=== PATIENT | female | born 1960 | race Caucasian/White ===

== ENCOUNTER 2016-10-08 21:02 | Emergency (ER) | payer OTHER ==
[~2016-10-08] VITALS: Ht 152.4 cm; Wt 66.0 kg
[~2016-10-08 21:02] MED LIST: INSULIN 70/30 SQ; MTF1000T PO
[2016-10-08 21:05] VITALS: Ht 152.4 cm; Wt 66.0 kg
[2016-10-08] MEDS ORDERED: FAMOTIDINE 20 MG TAB PO STA (21:20)
--- NOTE | 2016-10-08 21:23 | ERD ---
ER Documentation Chief Complaint Date/Time DATE: 10/08/16 TIME: 21:22 Chief Complaint Left AP with Right flank pain HPI Patient is a 56-year-old female who presents with gradual onset, intermittent, dull, moderate left upper and lower quadrant pain radiating to left flank since 3 PM. The patient states that the pain is coming gone on 3 occasions. She states that she had the same pain one year ago due to unknown cause. The patient states that she feels nauseous, but has not vomited. She has been constipated. She denies fever. Denies dysuria or hematuria. ROS All systems reviewed and are negative except as per history of present illness. Medications Home Meds Reported Medications Insulin Isophan/Regular (Humulin 70/30) 100 Units/Ml Susp, 42 UNIT SC AC BREAKFAST DINNER, EA 10/08/16 Metformin* (Glucophage*) 1,000 Mg Tablet, 1000 MG PO BID 01/30/12 Discontinued Reported Medications [Insulin 70/30] No Conflict Check, 42 UNITS SQ 01/30/12 Allergies Allergies: Coded Allergies: No Known Drug Allergy (Verified Allergy, Mild, 01/30/12) PMhx/Soc Past medical history: Diabetes, hypertension, hyperlipidemia, arthritis Past surgical history: Bladder surgery Social history: Denies tobacco, alcohol or illicit drugs per History of Surgery: Yes ( SURGERY, EYE SURGERY) Anesthesia Reaction: No Hx Neurological Disorder: No Hx Respiratory Disorders: No Hx Cardiac Disorders: No Hx Psychiatric Problems: No Hx Miscellaneous Medical Probl: Yes (DYSLIPIDEMIA, HTN) Hx Alcohol Use: No Hx Substance Use: No Hx Tobacco Use: No Smoking Status: Never smoker FmHx Family History: diabetes Physical Exam Vitals Vital Signs Date Time Temp Pulse Resp B/P Pulse Ox O2 Delivery O2 Flow Rate FiO2 10/08/16 21:05 98.7 79 18 185/80 97 Physical Exam Const: Alert, no acute distress Head: Atraumatic Eyes: Normal Conjunctiva, no pallor, no icterus ENT: Normal External Ears, Nose and Mouth. Mucous membranes tacky Neck: Full range of motion. No meningismus. Resp: Clear to auscultation bilaterally, no wheezes, no rales Cardio: Regular rate and rhythm, no murmurs Abd: Soft, non tender, non distended. No pulsatile mass Skin: No petechiae or rashes Back: No midline or flank tenderness, no paraspinal muscle tenderness Ext: No cyanosis, or edema Neur: Awake and alert, cranial nerves II through XII intact bilaterally, patient moves and feels 4 extremities appropriately Psych: Normal Mood and Affect Result Diagram: 10/08/16212410/08/162124 Results 24 hrs Laboratory Tests Test 10/08/16 21:25 10/08/16 22:30 White Blood Count 10.610^3/ul Red Blood Count 4.3210^6/ul Hemoglobin 12.3g/dl Hematocrit 36.7% Mean Corpuscular Volume 85.0fl Mean Corpuscular Hemoglobin 28.5pg Mean Corpuscular Hemoglobin Concent 33.5g/dl Red Cell Distribution Width 14.1% Platelet Count 81196^3/UL Mean Platelet Volume 11.5fl Neutrophils % 61.5% Lymphocytes % 32.1% Monocytes % 4.8% Eosinophils % 0.7% Basophils % 0.2% Nucleated Red Blood Cells % 0.0/100WBC Neutrophils # 6.510^3/ul Lymphocytes # 3.410^3/ul Monocytes # 0.510^3/ul Eosinophils # 0.110^3/ul Basophils # 0.010^3/ul Nucleated Red Blood Cells # 0.010^3/ul Prothrombin Time 12.4Sec Prothrombin Time Ratio 1.0 INR International Normalized Ratio 0.92 Sodium Level 136mmol/L Potassium Level 3.8mmol/L Chloride Level 101mmol/L Carbon Dioxide Level 26mmol/L Anion Gap 13 Blood Urea Nitrogen 18mg/dl Creatinine 0.74mg/dl Glucose Level 333mg/dl Calcium Level 8.9mg/dl Total Bilirubin 0.2mg/dl Direct Bilirubin 0.00mg/dl Indirect Bilirubin 0.2mg/dl Aspartate Amino Transf (AST/SGOT) 24IU/L Alanine Aminotransferase (ALT/SGPT) 48IU/L Alkaline Phosphatase 147IU/L Total Protein 7.6g/dl Albumin 4.3g/dl Globulin 3.30g/dl Albumin/Globulin Ratio 1.30 Lipase 254U/L Urine Color LT. YELLOW Urine Clarity CLEAR Urine pH 6.0 Urine Specific [place] <=1.005 Urine Ketones NEGATIVE Urine Nitrite NEGATIVE Urine Bilirubin NEGATIVE Urine Urobilinogen 0.2 E.U./dL Urine Leukocyte Esterase TRACE Urine Microscopic RBC NONE SEEN/HPF Urine Microscopic WBC 5-10/HPF Urine Squamous Epithelial Cells FEW Urine Hemoglobin NEGATIVE Urine Glucose >=1000% Urine Total Protein NEGATIVE Urine Test NEGATIVE Current Medications Medications (Trade) Dose Ordered Sig/Sarika Route PRN Reason Start Time Stop Time Status Last Admin Dose Admin Famotidine (Pepcid) 20 mg ONCE STAT PO 10/08/16 21:20 10/08/16 21:22 DC 10/08/16 21:38 Procedures/MDM MDM: Patient is a 56-year-old female who presents with 1 day of left-sided abdominal pain. She states that the pain is intermittent. X-ray is suggestive of constipation. Patient has a completely benign exam. UA shows a few WBCs but also has epithelial cells, and the patient denies urinary symptoms. A culture has been sent. I will send the patient home with Pepcid and MiraLAX, and advised on strict return precautions for worsening pain, vomiting or fever. Exam is not suggestive of appendicitis, biliary disease, diverticulitis. Departure Diagnosis: Primary Impression: Abdominal pain Abdominal location: left lower quadrant Qualified Code: R10.32 - Left lower quadrant pain Additional Impression: Constipation Constipation type: unspecified constipation type Qualified Code: K59.00 - Constipation, unspecified constipation type Condition: MAULIK Castro MD October 08, 2016 21:23
[2016-10-08 21:29] LABS: ADD SCAN DIFF NO
[2016-10-08 21:30] LABS: BASOPHILS % 0.2 % (0.0-2.0); EOSINOPHILS # 0.1 10^3/ul (0.0-0.5); EOSINOPHILS % 0.7 % (0.0-7.0); HEMATOCRIT 36.7 % (37.0-47.0); HEMOGLOBIN 12.3 g/dl (12.0-16.0); LYMPHOCYTES # 3.4 10^3/ul (0.8-2.9); LYMPHOCYTES % 32.1 % (15.0-51.0); MEAN CORPUSCULAR HEMOGLOBIN 28.5 pg (29.0-33.0); MEAN CORPUSCULAR HGB CONC 33.5 g/dl (32.0-37.0); MEAN PLATELET VOLUME 11.5 fl (7.4-10.4); MONOCYTE # 0.5 10^3/ul (0.3-0.9); MONOCYTES % 4.8 % (0.0-11.0); NEUTROPHIL # 6.5 10^3/ul (1.6-7.5); NEUTROPHILS % 61.5 % (39.0-77.0); PLATELET COUNT 249 10^3/UL (140-415); RED BLOOD COUNT 4.32 10^6/ul (4.20-5.40); RED CELL DISTRIBUTION WIDTH 14.1 % (11.5-14.5); WHITE BLOOD COUNT 10.6 10^3/ul (4.8-10.8)
[2016-10-08 21:45] LABS: INR 0.92; PROTIME 12.4 Sec (12.2-14.2)
[2016-10-08 21:51] LABS: ALBUMIN 4.3 g/dl (3.3-4.9); ALBUMIN/GLOBULIN RATIO 1.3; BILIRUBIN,INDIRECT 0.2 mg/dl (0-1.1); BILIRUBIN,TOTAL 0.2 mg/dl (0.2-1.3); CALCIUM 8.9 mg/dl (8.4-10.2); CREATININE 0.74 mg/dl (0.44-1.00); POTASSIUM 3.8 mmol/L (3.5-5.1); TOTAL PROTEIN 7.6 g/dl (6.1-8.1)
[2016-10-08] MEDS ORDERED: NOVO7030 SC (22:06)
--- NOTE | 2016-10-08 22:18 | RADRPT ---
PROCEDURE: ABDOMINAL - 3 VIEWS CLINICAL INDICATION: 56-year-old female with abdominal pain. TECHNIQUE: AP supine and upright views of the abdomen were obtained. The images reviewed on a [employer] workstation. COMPARISON: None. FINDINGS: There is a calcified granuloma within the left lower lung zone measuring 5 mm. There is no free air beneath the hemidiaphragms. There is retained stool throughout the colon without an obstructive nae adam. The osseous structures appear intact. IMPRESSION: Retained stool without gross bowel obstruction. .Aj Ho MD, MD Date Time Electronically viewed and signed by .Aj Ho MD, on 10/08/2016 22:17 .M/
[2016-10-08 22:45] LABS: ADD UMIC YES; URINE BILIRUBIN (Dip) NEGATIVE (NEGATIVE); URINE BLOOD (Dip) NEGATIVE (NEGATIVE); URINE COLOR LT. YELLOW (YELLOW); URINE GLUCOSE (Dip) >=1000 % (NEGATIVE); URINE KETONES (Dip) NEGATIVE (NEGATIVE); URINE LEUKOCYTE ESTERASE (Dip) TRACE (NEGATIVE); URINE NITRITE (Dip) NEGATIVE (NEGATIVE); URINE TOTAL PROTEIN (Dip) NEGATIVE (NEGATIVE); URINE UROBILINOGEN (Dip) 0.2 E.U./dL (0.1-1.0)
[2016-10-08 23:02] LABS: SQUAMOUS EPITHELIAL CELL,UR FEW; URINE RBCS NONE SEEN /HPF (0)
[2016-10-08] MEDS ORDERED: POLY17PO6 PO (23:34)
[2016-10-08] MEDS ORDERED: FAMO-18 PO (23:34)
[2016-10-08 23:40] VITALS: BP 166/81; PULSE 77; RESP 15
== END 2016-10-08 23:52 | disposition home or self-care (01) ==
LOC: E/R 21:02
DX: R10.32 Left lower quadrant pain (principal); K59.00 Constipation, unspecified; I10 Essential (primary) hypertension; E11.9 Type 2 diabetes mellitus without complications; Z79.4 Long term (current) use of insulin; Z79.84 Long term (current) use of oral hypoglycemic drugs
CPT/HCPCS: 36415; 74010; 80053; 81001; 83690; 84703; 85025; 85610; 87086; Z7502; Z7610; 81003

== ENCOUNTER 2017-02-16 23:53 | Emergency (ER) | payer OTHER ==
[~2017-02-16] VITALS: Ht 152.4 cm; Wt 63.0 kg
[~2017-02-16 23:53] MED LIST changes: +FAMO-96 PO; -INSULIN 70/30 SQ; +NOVO7030 SC; +POLY17PO6 PO
[2017-02-16 23:57] VITALS: Ht 152.4 cm; Wt 63.0 kg
[2017-02-17] MEDS ORDERED: HYDROCODONE/APAP (5/325) TAB PO ONE (02:00)
--- NOTE | 2017-02-17 02:13 | ERD ---
ER Documentation Chief Complaint Date/Time DATE: 02/17/17 TIME: 02:10 Chief Complaint c/o right sided head pain x 2 days. HPI 56-year-old female presents here in emergency department for complaints of right -sided ache that started 2 days ago. Patient discussed the pain as throbbing pain, 6/10 scale, not better or worse with anything. Patient denies any head injury, numbness or tingling, blurred vision, nausea or vomiting. Patient denies any other symptoms. Did not take any medications for pain. ROS All systems reviewed and are negative except as per history of present illness. Medications Home Meds Active Scripts Polyethylene Glycol* (Miralax*) 17 Gm Powd.pack, 17 GM PO DAILY, #7 Prov:MAULIK ROSALES MD 10/08/16 Famotidine* (Pepcid*) 20 Mg Tablet, 20 MG PO BID for 10 Days, TAB Prov:MAULIK ROSALES MD 10/08/16 Reported Medications Insulin Isophan/Regular (Humulin 70/30) 100 Units/Ml Susp, 42 UNIT SC AC BREAKFAST DINNER, EA 10/08/16 Metformin* (Glucophage*) 1,000 Mg Tablet, 1000 MG PO BID 01/30/12 Allergies Allergies: Coded Allergies: No Known Drug Allergy (Verified Allergy, Mild, 01/30/12) PMhx/Soc History of Surgery: Yes ( SURGERY, EYE SURGERY) Anesthesia Reaction: No Hx Neurological Disorder: No Hx Respiratory Disorders: No Hx Cardiac Disorders: No Hx Psychiatric Problems: No Hx Miscellaneous Medical Probl: Yes (DYSLIPIDEMIA, HTN) Hx Alcohol Use: No Hx Substance Use: No Hx Tobacco Use: No FmHx Family History: No coronary disease, No diabetes, No other Physical Exam Vitals Vital Signs Date Time Temp Pulse Resp B/P Pulse Ox O2 Delivery O2 Flow Rate FiO2 02/16/17 23:57 98.7 76 18 193/93 100 Physical Exam GENERAL: The patient is well developed and appropriate for usual state of health, in no apparent distress. CHEST: Clear to auscultation bilaterally. There are no rales, wheezes or rhonchi. HEART: Regular rate and rhythm. No murmurs, clicks, rubs or gallops. No S3 or S4. ABDOMEN: Soft, nontender and nondistended. Good bowel sounds. No rebound or guarding. No gross peritonitis. No gross organomegaly or masses. No Cabral sign or McBurney point tenderness. BACK: No midline or flank tenderness. EXTREMITIES: Equal pulses bilaterally. There is no peripheral clubbing, cyanosis or edema. No focal swelling or erythema. Full range of motion. Grossly neurovascularly intact. NEURO: Alert and oriented. Cranial nerves 2-12 intact. Motor strength in all 4 extremities with 5/5 strength. Sensation grossly intact. Normal speech and gait. SKIN: There is no apparent rash or petechia. The skin is warm and dry. HEMATOLOGIC AND LYMPHATIC: There is no evidence of excessive bruising or lymphedema. No gross cervical, axillary, or inguinal lymphadenopathy. Results 24 hrs Current Medications Medications (Trade) Dose Ordered Sig/Sarika Route PRN Reason Start Time Stop Time Status Last Admin Dose Admin Acetaminophen/ Hydrocodone Bitart ([place] (5/325)) 1 tab ONCE ONCE PO 02/17/17 02:00 02/17/17 02:01 DC 02/17/17 02:11 Patient was given medication for pain here in emergency department, after treatment, patient verbalized feeling much better. Patient's pain is improved. PROCEDURE: CT BRAIN WITHOUT CONTRAST CLINICAL INDICATION: 56-year-old female with headaches. TECHNIQUE: The study was performed utilizing a [employer]) VCT 64-slice CT scanner. Direct axial sections were obtained from the foramen magnum to the vertex without the use of intravenous contrast material. Sagittal and coronal reformations were obtained. One or more the following dose reduction techniques were utilized: automated exposure control, adjustment of the mA and/or kV according to patient's size or use of iterative reconstruction technique. The images were viewed on a PACS workstation. CTD/vol = 45.0 mGy; Total Exam DLP = 720.2 mGy-cm. COMPARISON: None. FINDINGS: The ventricles have a normal size, shape and position. There is no evidence for mass effect or midline shift. There is a small punctate right parietal cortical calcification measuring 2 mm on axial image 2-23. There is a small right temporal calcific density measuring approximately 3 x 3 mm in axial image 2-9. There is no evidence for acute intra or extra-axial blood. The bony calvarium is intact. There is mild mucosal thickening within the partially visualized maxillary sinuses. There is moderate mucosal thickening within the left ethmoid air cells. Milder mucosal thickening is seen within the right ethmoid air cells. The frontal sinuses are diminutive. No air-fluid levels are noted. The mastoid air cells are without significant soft tissue. IMPRESSION: 1. 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 2. Paranasal sinus disease. .Aj Ho MD, Date Time Electronically viewed and signed by .Aj Ho MD, on 02/17/2017 03:06 .M/ CC: REG NESS PROGRAM CHECKER Procedures/MDM Medical Decision Making: Patient symptoms are consistent with migraine headache , possible tension headache. There is low suspicion for neurological emergencies at this time since patients neurologic exam is normal. Patient did not have any altered level consciousness, vomiting, changes in balance or memory and did not have any head injury. Patients CT scan of the head does not show any neurological emergencies at this time. Patient also has para nasal sinusitis will be treated. Rx: Fioricet with codeine, Zofran, Augmentin, follow up with primary care doctor in 2-3 days for reevaluation of symptoms. Patient was advised to return to emergency department for any worsening symptoms Dispostion: Home. Stable Disclaimer: Inadvertent spelling and grammatical errors are likely due to EHR/ dictation software use and do not reflect on the overall quality of patient care. Also, please note that the electronic time recorded on this note does not necessarily reflect the actual time of the patient encounter. Departure Diagnosis: Primary Impression: Headache Headache type: unspecified Headache chronicity pattern: acute headache Intractability: not intractable Qualified Code: R51 - Acute nonintractable headache, unspecified headache type Additional Impression: Sinusitis Sinusitis location: pansinusitis Chronicity: acute Recurrence: not specified as recurrent Qualified Code: J01.40 - Acute pansinusitis, recurrence not specified Condition: Stable REG NESS NP Feb 17, 2017 02:13
--- NOTE | 2017-02-17 03:06 | RADRPT ---
PROCEDURE: CT BRAIN WITHOUT CONTRAST CLINICAL INDICATION: 56-year-old female with headaches. TECHNIQUE: The study was performed utilizing a [employer] VCT 64-slice CT scanner. Direct axia l sections were obtained from the foramen magnum to the vertex without the use of intravenous contra st material. Sagittal and coronal reformations were obtained. One or more the following dose reduct ion techniques were utilized: automated exposure control, adjustment of the mA and/or kV according t o patient's size or use of iterative reconstruction technique. The images were viewed on a PACS [employer]. CTD/vol = 45.0 mGy; Total Exam DLP = 720.2 mGy-cm. COMPARISON: None. FINDINGS: The ventricles have a normal size, shape and position. There is no evidence for mass effect or midl ine shift. There is a small punctate right parietal cortical calcification measuring 2 mm on axial image 2-23. There is a small right temporal calcific density measuring approximately 3 x 3 mm in axi al image 2-9. There is no evidence for acute intra or extra-axial blood. The bony calvarium is intac t. There is mild mucosal thickening within the partially visualized maxillary sinuses. There is mode rate mucosal thickening within the left ethmoid air cells. Milder mucosal thickening is seen within the right ethmoid air cells. The frontal sinuses are diminutive. No air-fluid levels are noted. The mastoid air cells are without significant soft tissue. IMPRESSION: 1. 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 2. Paranasal sinus disease. .Aj Ho MD, Date Time Electronically viewed and signed by .Aj Ho MD, MD on 02/17/2017 03:06 .Isabel
[2017-02-17] MEDS ORDERED: AMOX1TAB10 PO (03:13)
[2017-02-17] MEDS ORDERED: BUTA1CAP39 PO (03:13)
[2017-02-17] MEDS ORDERED: ONDA4TAB14 PO (03:13)
[2017-02-17 03:48] VITALS: BP 179/82; PULSE 76; RESP 18; TEMP 98.2
== END 2017-02-17 03:54 | disposition home or self-care (01) ==
LOC: FTE 23:53
DX: R51 Headache (principal); J01.40 Acute pansinusitis, unspecified; I10 Essential (primary) hypertension; E11.9 Type 2 diabetes mellitus without complications; Z79.4 Long term (current) use of insulin; Z79.84 Long term (current) use of oral hypoglycemic drugs
CPT/HCPCS: 70450; Z7502; Z7610

== ENCOUNTER 2017-07-30 10:57 | Emergency (ER) | END 2017-07-30 14:22 | disposition home or self-care (01) ==

== ENCOUNTER 2017-11-20 12:25 | Emergency (ER) | END 2017-11-20 18:15 | disposition home or self-care (01) ==

== ENCOUNTER 2017-12-02 12:37 | Emergency (ER) | END 2017-12-02 15:11 | disposition home or self-care (01) ==

== ENCOUNTER 2018-05-20 09:50 | Emergency (ER) | END 2018-05-20 13:32 | disposition home or self-care (01) ==

== ENCOUNTER 2018-09-13 09:28 | Emergency (ER) | payer OTHER ==
[~2018-09-13] VITALS: Ht 167.6 cm; Wt 62.3 kg
[~2018-09-13 09:28] MED LIST changes: +ATOR40TA68 PO; +DULO30CA47 PO; +ERGO500013 PO; -FAMO-96 PO; +GABA300C16 PO; +IBUP-1544 PO; +LISI-471 PO; +METF100010 PO; -MTF1000T PO; -POLY17PO6 PO; +SITA100T11 PO; +TRAZ-111 PO
[2018-09-13 09:36] VITALS: BP 163/78; PULSE 103; RESP 20; Ht 167.6 cm; Wt 62.3 kg
[2018-09-13] MEDS ORDERED: KETOROLAC 30 MG INJ IM STA (11:10)
[2018-09-13] MEDS ORDERED: IBUP-1542 PO (11:12)
[2018-09-13] MEDS ORDERED: TRAM50TA2 PO (11:12)
--- NOTE | 2018-09-13 11:16 | ERD ---
ER Documentation Chief Complaint Chief Complaint Complains of back pain x 3 days HPI 58-year-old female presents with left low back pain rating to the left buttock for last 3 days patient is any fall, inciting events. She denies any bowel bladder incontinence, fevers, abdominal pain. She denies any urinary complaints or hematuria. She denies previous history of back problems. ROS All systems reviewed and are negative except as per history of present illness. Medications Home Meds Active Scripts Ibuprofen* (Motrin*) 600 Mg Tab, 600 MG PO Q6, #20 TAB Prov:SUZAN MCKEON MD 09/13/18 Tramadol HCl (Tramadol HCl) 50 Mg Tablet, 50 MG PO Q4 PRN for PAIN, #20 TAB Prov:SUZAN MCKEON MD 09/13/18 Reported Medications Duloxetine Hcl* (Duloxetine Hcl*) 30 Mg Capsule.dr, 60 MG PO DAILY, #30 CAP 05/20/18 Ibuprofen* (Ibuprofen*) 800 Mg Tablet, 800 MG PO Q8, TAB 05/20/18 Sitagliptin* (Januvia*) 100 Mg Tablet, 100 MG PO DAILY, #30 TAB 05/20/18 Trazodone Hcl* (Trazodone Hcl*) 50 Mg Tablet, 50 MG PO QHS, #30 TAB 05/20/18 Gabapentin* (Gabapentin*) 300 Mg Capsule, 300 MG PO BID, #60 CAP 05/20/18 Lisinopril* (Lisinopril*) 20 Mg Tablet, 20 MG PO DAILY, #30 TAB 05/20/18 Atorvastatin* (Atorvastatin*) 40 Mg Tablet, 40 MG PO QHS, #30 TAB 05/20/18 Ergocalciferol (Vitamin D2) (VITAMIN D2) 50,000 Unit Capsule, 29710 UNIT PO Q TU, CAP 05/20/18 Metformin Hcl* (Metformin Hcl*) 1,000 Mg Tablet, 1000 MG PO WITH BREAKFAST DINNE, #30 TAB 07/30/17 Insulin Isophan/Regular (Humulin 70/30) 100 Units/Ml Susp, 30 UNIT SC AC BREAKFAST DINNER, EA 07/30/17 Allergies Allergies: Coded Allergies: No Known Drug Allergy (Verified Allergy, Mild, 05/20/18) PMhx/Soc History of Surgery: Yes (GI Surg,Eye Surg) Anesthesia Reaction: No Hx Neurological Disorder: No Hx Respiratory Disorders: No Hx Cardiac Disorders: No Hx Psychiatric Problems: No Hx Miscellaneous Medical Probl: Yes (Hyperlipidemia,HTN, DM) Hx Alcohol Use: No Hx Substance Use: No Hx Tobacco Use: No FmHx Family History: No diabetes, No coronary disease, No other Physical Exam Vitals Vital Signs Date Temp Pulse Resp B/P (MAP) Pulse Ox O2 O2 Flow FiO2 Time Delivery Rate 09/13/18 98.8 103 20 163/78 98 09:36 (106) Physical Exam Const: No acute distress Head: Atraumatic Eyes: Normal Conjunctiva ENT: Normal External Ears, Nose and Mouth. Neck: Full range of motion. No meningismus. Resp: Clear to auscultation bilaterally Cardio: Regular rate and rhythm, no murmurs Abd: Soft, non tender, non distended. Normal bowel sounds Skin: No petechiae or rashes Back: No midline or flank tenderness or tenderness with spasm in the left L4- L5 area. Mildly positive straight leg raise. Ext: No cyanosis, or edema Neur: Awake and alert. Ambulatory without deficits or weakness. Psych: Normal Mood and Affect Results 24 hrs Current Medications Medications Dose Sig/Sarika Start Time Status Last (Trade) Ordered Route PRN Stop Time Admin Dose Reason Admin Ketorolac 30 mg ONCE STAT 09/13/18 DC Tromethamine IM 11:10 (Toradol) 09/13/18 11:11 Procedures/MDM Patient presents with nontraumatic left low back pain with signs of sciatica over the last 3 days. Mechanism does not suggest fracture, dislocation and additional symptoms do not suggest metastatic disease, neurologic deficit, cauda equina syndrome, epidural abscess, additional concerning signs or symptoms to suggest emergent causes of presenting complaints. She was given Toradol 30 mg IM and will be treated with tramadol, ibuprofen, instructions for back exercises, primary care follow-up and return precautions for fevers, abdominal pain, deficits, new or worsening symptoms. The patient was stable with no new complaints during the ER course. Clinically, there is no current evidence to suggest meningitis, sepsis, acute abdomen, pneumonia, stroke, acute coronary syndrome, pulmonary embolism, aortic dissection or any other emergent condition appearing to require further evaluation or hospitalization. Patient counseled regarding my diagnostic impression and care plan. Prior to discharge all questions answered. Pt agrees with treatment plan and understands strict return precautions. Pt is instructed to follow up with primary care provider within 24- 48 hours. Precautionary instructions provided including instructions to return to the ER if not improving or for any worsening or changing symptoms or concerns. Departure Diagnosis: Primary Impression: Back pain Back pain location: low back pain Chronicity: acute Back pain laterality: right Sciatica presence: with sciatica Sciatica laterality: sciatica of left side Qualified Codes: M54.42 - Lumbago with sciatica, left side Condition: Stable Patient Instructions: Back Exercises, Lumbar, Back Pain W/ Sciatica Referrals: DOCTOR,NOT ON STAFF (PCP) Additional Instructions: . Cheque otro vez con little doctor primario en el proximo abad or regresa para mas o nueva simptomas- fiebre, vomito, dolor en estomago. SUZAN MCKEON MD Sep 13, 2018 11:16
== END 2018-09-13 11:53 | disposition home or self-care (01) ==
LOC: FTE 09:28
DX: M54.42 Lumbago with sciatica, left side (principal); I10 Essential (primary) hypertension; E11.9 Type 2 diabetes mellitus without complications; Z79.4 Long term (current) use of insulin
CPT/HCPCS: 96372; J1885; Z7502

== ENCOUNTER 2018-10-05 22:16 | Emergency (ER) | payer OTHER ==
[~2018-10-05] VITALS: Ht 147.3 cm; Wt 64.3 kg
[~2018-10-05 22:16] MED LIST changes: +IBUP-1542 PO; +TRAM50TA2 PO
[2018-10-05 22:37] VITALS: BP 173/91; PULSE 91; RESP 16; Ht 147.3 cm; Wt 64.3 kg
[2018-10-06] MEDS ORDERED: KETOROLAC 30 MG INJ IM STA (02:09)
[2018-10-06] MEDS ORDERED: ACET-141 PO (03:00)
[2018-10-06] MEDS ORDERED: IBUP-1542 PO (03:00)
--- NOTE | 2018-10-06 03:00 | ERD ---
ER Documentation Chief Complaint Chief Complaint L hand pain x3 days w/ mild numbness to L thumb. no injury. good CMS ROS All systems reviewed and are negative except as per history of present illness. Medications Home Meds Active Scripts Acetaminophen* (Acetaminophen*) 500 MG Extra Strength Tablet, 500 MG PO Q4H PRN for PAIN AND OR ELEVATED TEMP, #30 TAB Prov:ANDREEA SAEED 10/06/18 Ibuprofen* (Motrin*) 600 Mg Tab, 600 MG PO Q6H PRN for PAIN AND OR ELEVATED TEMP, #30 TAB Prov:ANDREEA SAEED DO 10/06/18 Ibuprofen* (Motrin*) 600 Mg Tab, 600 MG PO Q6, #20 TAB Prov:SUZAN MCKEON MD 09/13/18 Tramadol HCl (Tramadol HCl) 50 Mg Tablet, 50 MG PO Q4 PRN for PAIN, #20 TAB Prov:SUZAN MCKEON MD 09/13/18 Reported Medications Duloxetine Hcl* (Duloxetine Hcl*) 30 Mg Capsule.dr, 60 MG PO DAILY, #30 CAP 05/20/18 Ibuprofen* (Ibuprofen*) 800 Mg Tablet, 800 MG PO Q8, TAB 05/20/18 Sitagliptin* (Januvia*) 100 Mg Tablet, 100 MG PO DAILY, #30 TAB 05/20/18 Trazodone Hcl* (Trazodone Hcl*) 50 Mg Tablet, 50 MG PO QHS, #30 TAB 05/20/18 Gabapentin* (Gabapentin*) 300 Mg Capsule, 300 MG PO BID, #60 CAP 05/20/18 Lisinopril* (Lisinopril*) 20 Mg Tablet, 20 MG PO DAILY, #30 TAB 05/20/18 Atorvastatin* (Atorvastatin*) 40 Mg Tablet, 40 MG PO QHS, #30 TAB 05/20/18 Ergocalciferol (Vitamin D2) (VITAMIN D2) 50,000 Unit Capsule, 23104 UNIT PO Q TU, CAP 05/20/18 Metformin Hcl* (Metformin Hcl*) 1,000 Mg Tablet, 1000 MG PO WITH BREAKFAST DINNE, #30 TAB 07/30/17 Insulin Isophan/Regular (Humulin 70/30) 100 Units/Ml Susp, 30 UNIT SC AC BREAKFAST DINNER, EA 07/30/17 Allergies Allergies: Coded Allergies: No Known Drug Allergy (Verified Allergy, Mild, 05/20/18) PMhx/Soc History of Surgery: Yes (GI Surg,Eye Surg) Anesthesia Reaction: No Hx Neurological Disorder: No Hx Respiratory Disorders: No Hx Cardiac Disorders: No Hx Psychiatric Problems: No Hx Miscellaneous Medical Probl: Yes (Hyperlipidemia,HTN, DM, arthritis) Hx Alcohol Use: No Hx Substance Use: No Hx Tobacco Use: No Smoking Status: Never smoker Physical Exam Vitals Vital Signs Date Temp Pulse Resp B/P (MAP) Pulse Ox O2 O2 Flow FiO2 Time Delivery Rate 10/05/18 98.4 91 16 173/91 97 22:37 (118) Physical Exam Const: No acute distress Head: Atraumatic Eyes: Normal Conjunctiva ENT: Normal External Ears, Nose and Mouth. Neck: Full range of motion. No meningismus. Resp: Clear to auscultation bilaterally Cardio: Regular rate and rhythm, no murmurs Abd: Soft, non tender, non distended. Normal bowel sounds Skin: No petechiae or rashes Back: No midline or flank tenderness Ext: No cyanosis, or edema Neur: Awake and alert Psych: Normal Mood and Affect Results 24 hrs Current Medications Medications Dose Sig/Sarika Start Time Status Last (Trade) Ordered Route PRN Stop Time Admin Dose Reason Admin Ketorolac 30 mg ONCE STAT 10/06/18 DC 10/06/18 Tromethamine IM 02:09 10/06/18 02:19 (Toradol) 02:10 Departure Diagnosis: Primary Impression: Pain of hand Laterality: left Qualified Codes: M79.642 - Pain in left hand Condition: Fair Patient Instructions: Sprain Hand Referrals: [facility] YOU HAVE RECEIVED A MEDICAL SCREENING EXAM AND THE RESULTS INDICATE THAT YOU DO NOT HAVE A CONDITION THAT REQUIRES URGENT TREATMENT IN THE EMERGENCY DEPARTMENT. FURTHER EVALUATION AND TREATMENT OF YOUR CONDITION CAN WAIT UNTIL YOU ARE SEEN IN YOUR DOCTORS OFFICE WITHIN THE NEXT 1-2 DAYS. IT IS YOUR RESPONSIBILITY TO MAKE AN APPOINTMENT FOR FOLOW-UP CARE. IF YOU HAVE A PRIMARY DOCTOR --you should call your primary doctor and schedule an appointment IF YOU DO NOT HAVE A PRIMARY DOCTOR YOU CAN CALL OUR PHYSICIAN REFERRAL HOTLINE AT IF YOU CAN NOT AFFORD TO SEE A PHYSICIAN YOU CAN CHOSE FROM THE FOLLOWING [facility] [address] [facility]. [facility] [address] [facility] [facility] [address] [facility] [address] [facility]. [facility] [address] [facility]. [facility] [address] Additional Instructions: Llame al doctor MAANA y shelly becca GAEL PARA DENTRO DE 1-2 SUAREZ.Dgale a la secretaria que nosotros le instruimos hacer esta gael.Avise o llame si little condicin se empeora antes de la gael. Regresa aqui si peor o no mejor. ANDREEA SAEED DO October 06, 2018 03:00
== END 2018-10-06 03:10 | disposition home or self-care (01) ==
LOC: FTE 22:16
DX: M79.642 Pain in left hand (principal); I10 Essential (primary) hypertension; E11.9 Type 2 diabetes mellitus without complications; Z79.4 Long term (current) use of insulin
CPT/HCPCS: 96372; J1885; Z7502

== ENCOUNTER 2019-01-16 17:14 | Emergency (ER) | payer OTHER ==
[~2019-01-16] VITALS: Ht 147.3 cm; Wt 65.5 kg
[~2019-01-16 17:14] MED LIST changes: +ACET-141 PO; +CYCL10TA7 PO; +HYDR-4011 PO
[2019-01-16 17:16] VITALS: BP 144/87; PULSE 76; RESP 16; Ht 147.3 cm; Wt 65.5 kg
--- NOTE | 2019-01-16 17:21 | EN ---
Date/Time of Note Date/Time of Note DATE: 01/16/19 TIME: 17:20 ER Progress Note [id number]-hmev-old female with history of diabetes with nontraumatic low back pain rating to left leg. Having pain despite ibuprofen. No SIRS criteria. ED 2 appropriate for medication for signs and symptoms consistent with sciatica. SUZAN MCKEON MD Jan 16, 2019 17:21
[2019-01-16] MEDS ORDERED: KETOROLAC 30 MG INJ IM STA (17:37)
--- NOTE | 2019-01-16 17:46 | ERD ---
ER Documentation Chief Complaint Chief Complaint lower back pain rad to L leg w/ body aches x1 week HPI 58-year-old female is here with lower back pain that radiates down her left lower extremity. This is been going on and off for about a week. No injury or trauma. No bowel or bladder incontinence. No fever. No nausea or vomiting. No dysuria hematuria or frequency. Took ibuprofen with no relief. ROS All systems reviewed and are negative except as per history of present illness. Medications Home Meds Active Scripts Hydrocodone/Acetaminophen ([place] 5-325 Tablet) 1 Each Tablet, 1 TAB PO Q6H PRN for PAIN, #15 TAB Prov:AMY ALEGRIA PA-C 01/16/19 Ibuprofen* (Motrin*) 600 Mg Tab, 600 MG PO Q6H PRN for PAIN AND OR ELEVATED TEMP, #30 TAB Prov:AMY ALEGRIA PA-C 01/16/19 Cyclobenzaprine Hcl* (Cyclobenzaprine Hcl*) 10 Mg Tablet, 10 MG PO BID, #15 TAB Prov:AMY ALEGRIA PA-C 01/16/19 Acetaminophen* (Acetaminophen*) 500 MG Extra Strength Tablet, 500 MG PO Q4H PRN for PAIN AND OR ELEVATED TEMP, #30 TAB Prov:ANDREEA SAEED DO 10/06/18 Ibuprofen* (Motrin*) 600 Mg Tab, 600 MG PO Q6H PRN for PAIN AND OR ELEVATED TEMP, #30 TAB Prov:ANDREEA SAEED DO 10/06/18 Ibuprofen* (Motrin*) 600 Mg Tab, 600 MG PO Q6, #20 TAB Prov:SUZAN MCKEON MD 09/13/18 Tramadol HCl (Tramadol HCl) 50 Mg Tablet, 50 MG PO Q4 PRN for PAIN, #20 TAB Prov:SUZAN MCKEON MD 09/13/18 Reported Medications Duloxetine Hcl* (Duloxetine Hcl*) 30 Mg Capsule.dr, 60 MG PO DAILY, #30 CAP 05/20/18 Ibuprofen* (Ibuprofen*) 800 Mg Tablet, 800 MG PO Q8, TAB 05/20/18 Sitagliptin* (Januvia*) 100 Mg Tablet, 100 MG PO DAILY, #30 TAB 05/20/18 Trazodone Hcl* (Trazodone Hcl*) 50 Mg Tablet, 50 MG PO QHS, #30 TAB 05/20/18 Gabapentin* (Gabapentin*) 300 Mg Capsule, 300 MG PO BID, #60 CAP 05/20/18 Lisinopril* (Lisinopril*) 20 Mg Tablet, 20 MG PO DAILY, #30 TAB 05/20/18 Atorvastatin* (Atorvastatin*) 40 Mg Tablet, 40 MG PO QHS, #30 TAB 05/20/18 Ergocalciferol (Vitamin D2) (VITAMIN D2) 50,000 Unit Capsule, 20289 UNIT PO Q TU, CAP 05/20/18 Metformin Hcl* (Metformin Hcl*) 1,000 Mg Tablet, 1000 MG PO WITH BREAKFAST DINNE, #30 TAB 07/30/17 Insulin Isophan/Regular (Humulin 70/30) 100 Units/Ml Susp, 30 UNIT SC AC BREAKFAST DINNER, EA 07/30/17 Allergies Allergies: Coded Allergies: No Known Drug Allergy (Verified Allergy, Mild, 01/16/19) PMhx/Soc History of Surgery: Yes (GI Surg,Eye Surg) Anesthesia Reaction: No Hx Neurological Disorder: No Hx Respiratory Disorders: No Hx Cardiac Disorders: No Hx Psychiatric Problems: No Hx Miscellaneous Medical Probl: Yes (Hyperlipidemia,HTN, DM, arthritis) Hx Alcohol Use: No Hx Substance Use: No Hx Tobacco Use: No FmHx Family History: diabetes Physical Exam Vitals Vital Signs Date Temp Pulse Resp B/P (MAP) Pulse Ox O2 O2 Flow FiO2 Time Delivery Rate 01/16/19 98.3 76 16 144/87 97 17:16 (106) Physical Exam Const: No acute distress Head: Atraumatic Eyes: Normal Conjunctiva ENT: Normal External Ears, Nose and Mouth. Neck: Full range of motion. No meningismus. Resp: Clear to auscultation bilaterally Cardio: Regular rate and rhythm, no murmurs Back Exam: Compartments: Soft Motor: Normal flexion and extension of bilateral hip/knee/ankle/foot Sensation: Intact to light touch throughout Bones: No midline TTP Results 24 hrs Current Medications Medications Dose Sig/Sarika Start Time Status Last (Trade) Ordered Route PRN Stop Time Admin Dose Reason Admin Ketorolac 30 mg ONCE STAT 01/16/19 DC Tromethamine IM 17:37 (Toradol) 01/16/19 17:39 1 tab ONCE ONCE 01/16/19 Acetaminophen PO 18:00 / 01/16/19 18:01 Hydrocodone Bitart ([place] (5/325)) Procedures/MDM The differential diagnosis includes but is not limited to muscle strain, ligament strain, contusion, arthritis, discogenetic disease, non- musculoskeletal, cauda equina syndrome, cord compression, abscess and others. Signs and symptoms concerning for sciatica. She was given Toradol here and [place]. Prescription for ibuprofen Flexeril and norco. Patient counseled regarding my diagnostic impression and care plan. Prior to discharge all questio ns answered. Pt agrees with treatment plan and understands strict return precautions. Pt is instructed to follow up with primary care provider within 24- 48 hours. Precautionary instructions provided including instructions to return to the ER if not improving or for any worsening or changing symptoms or concerns. Departure Diagnosis: Primary Impression: Back pain Condition: Stable Patient Instructions: Back Pain (Acute Or Chronic) Additional Instructions: Llame al doctor DARION y shelly becca GAEL PARA DENTRO DE 1-2 SUAREZ.Dgale a la secretaria que nosotros le instruimos hacer esta gael.Avise o llame si little condicin se empeora antes de la gael. Regresa aqui si peor o no mejor. AMY ALEGRIA PA-C Jan 16, 2019 17:46
[2019-01-16] MEDS ORDERED: HYDROCODONE/APAP (5/325) TAB PO ONE (18:00)
== END 2019-01-16 17:57 | disposition home or self-care (01) ==
LOC: FTE 17:14
DX: M54.5 Low back pain (principal); I10 Essential (primary) hypertension; E11.9 Type 2 diabetes mellitus without complications; Z79.4 Long term (current) use of insulin
CPT/HCPCS: 96372; J1885; Z7502; Z7610